=== PATIENT | female | born 1995 | race Hispanic/Latino ===

== ENCOUNTER 2021-09-12 08:01 | Emergency (ER) | payer BC ==
[~2021-09-12] VITALS: Ht 154.9 cm; Wt 54.9 kg
[2021-09-12] MEDS ORDERED: DIPHENHYDRAMINE HCL 25 MG CAP PO ONE (08:15)
[2021-09-12] MEDS ORDERED: METHYLPREDNISOLONE SOD SUCC 125 MG/2ML VIAL IM ONE (08:15)
[2021-09-12] MEDS ORDERED: FAMOTIDINE 20 MG TAB PO ONE (08:15)
[2021-09-12] MEDS ORDERED: PREDNISONE20 MG PO (08:16)
[2021-09-12] MEDS ORDERED: PEPCID20 MG PO (08:16)
[2021-09-12] MEDS ORDERED: BENADRYL25 M1 PO (08:16)
== END 2021-09-12 08:25 | disposition home or self-care (01) ==
LOC: ER 08:06
DX: L30.9 Dermatitis, unspecified (principal)
CPT/HCPCS: 99283; J2930

== ENCOUNTER → 2024-09-30 | Outpatient (REF) | payer BC, OTHER ==
[~2024-09-30] MED LIST: BENADRYL25 M1 PO; PEPCID20 MG PO; PREDNISONE20 MG PO
== END ==
LOC: US 13:24
PROVIDERS: ATTEND Nurse Practitioner
DX: R10.2 Pelvic and perineal pain (principal)
CPT/HCPCS: 76830; 93976